=== PATIENT | female | born 1950 ===

== ENCOUNTER 2018-09-30 08:09 | Day surgery (SDC) | payer OTHER ==
[2018-09-30 08:55] VITALS: BMI 29.6
--- NOTE | 2018-09-30 10:52 | CP.SDSHP ---
Same Day Surgery H & P - History Proposed Procedure: colonoscopy - Previous Medical/Surgical History Cardiac: Hypertension, Other (hypercholesterolemia) Previous Surgical History: Cholecystectomy. SAMEERA/bso - Allergies Allergies: Allergies acetaminophen Allergy (Severe, Verified 09/30/18 08:52) PALPATIONS - Physical Exam Vital Signs: Vital Signs 09/30/18 08:30 Temperature 97.8 F Pulse Rate 68 Respiratory 20 Rate Blood Pressure 127/62 O2 Sat by Pulse 99 Oximetry Mental Status: Alert & Oriented x3 Neuro: WNL Heart: WNL Lungs: WNL GI: WNL - Impression Impression: rectal bleeding. screening for colon cancer Pt. Evaluated Today:Candidate for Anesthesia & Procedure: Yes - Date & Time Date: 09/30/18 Time: 10:52 Short Stay Discharge - Short Stay Discharge Admitting Diagnosis/Reason for Visit: SCREENING Disposition: HOME/ ROUTINE Referrals: Jesús Haddad DO [Primary Care Provider] -
[2018-09-30] MEDS ORDERED: Lidocaine Hydrochloride 5 ML INJ ONE (10:59)
[2018-09-30] MEDS ORDERED: Propofol 10 mg/ml Inj (20 ML) ONE (10:59)
[2018-09-30 13:08] VITALS: TEMP 97.3; O2SAT 100
[2018-09-30 13:16] VITALS: BP 124/76; PULSE 61; RESP 19
== END 2018-09-30 12:40 | disposition home or self-care (01) ==
LOC: C.ENDO 08:09
PROVIDERS: ATTEND Internal Medicine Gastroenterology
DX: Z12.11 Encounter for screening for malignant neoplasm of colon (principal); D12.5 Benign neoplasm of sigmoid colon; D12.3 Benign neoplasm of transverse colon; K64.8 Other hemorrhoids
CPT/HCPCS: 45380; 88305; J2704